=== PATIENT | male | born 1980 | race Caucasian/White ===

== ENCOUNTER 2016-05-25 23:50 | Emergency (ER) | payer SELFPAY ==
--- NOTE | ~2016-05-25 | CR63 ---
[facility] A Service [facility] RADIOLOGY TEXT RESULTS PATIENT: JESSICA WALLACE LOCATION: SED : 84 UNIT #: [id number] AGE: [address]: Dominick Maria PAC SEX: M ORDER DR: [id number] [id number] MR#: [id number] Acc #: [id number] NAME: JESSICA WALLACE : 1980 SEX: M STUDY DATE/TIME: 05/26/2016 1:18 UNIT: SED ROOM: STUDY DESCRIPTION: CR Chest 2 View Attending Physician: Dominick Maria P.A.-C. Ordering Physician: Dominick Maria P.A.-C. Primary Care Physician: Primary Care Physician No MEDICAL IMAGING REPORT This report is preliminary unless electronic signature is present. EXAM Two-view chest INDICATION Cough for the past 2 weeks. PROCEDURE Frontal lateral views of the chest. COMPARISON 01/21/2014 FINDINGS Heart size within normal limits. No dense consolidation. No pleural fluid. No pneumothorax. IMPRESSION No active process Dictated by... Rudy Tapia M.D. THIS IS AN ELECTRONICALLY VERIFIED REPORT Rudy Tapia M.D. at 05/26/2016 9:56 PM EED/anam TD: 05/26/2016 07:54 JOB #: [id number] MEDICAL IMAGING REPORT [facility] A Service of [facility] RADIOLOGY TEXT RESULTS PATIENT: JESSICA WALLACE LOCATION: SED : [birth year] UNIT #: [id number] AGE: [address]: Dominick Maria PAC SEX: M ORDER DR: Page 1 of 1
[~2016-05-25 23:50] MED LIST: AMOXICILLIN500 M1 PO; AMOXIL875 MG PO; DICYCLOMINE HCL20 MG PO; MEDROL4 MG/DOSE- PO; MOTRIN600 MG PO; NO MEDICATIONS; PHENERGAN25 MG PO; PYRIDIUM PO; VICODIN 5/1 TAB 5/50 PO; ZOVIRAX800 MG PO
[2016-05-26] MEDS ORDERED: MUCINEX100 MG/5 M (00:17)
[2016-05-26 01:18] LABS: INFLUENZA A NEG (NEG); INFLUENZA B NEG (NEG)
== END 2016-05-26 02:14 | disposition home or self-care (01) ==
LOC: SED 23:50
PROVIDERS: Physician Assistant
DX: J20.9 Acute bronchitis, unspecified (principal)
CPT/HCPCS: 71020; 87804; 94640; 99283